=== PATIENT | female | born 1965 | race Caucasian/White ===

== ENCOUNTER 2017-03-04 08:55 | Emergency (ER) | payer BC ==
[2017-03-04 09:02] VITALS: BP 132/117; PULSE 86; TEMP 98.5; BMI 30.2
[2017-03-04] MEDS ORDERED: ALBUTEROL SO4 2.5/IPRATROPIUM 0.5 INH SOL 3 ML VIAL.NEB. NEB ONE (09:49)
[2017-03-04] MEDS ORDERED: predniSONE 20 MG TABLET (UD) PO ONE (09:49)
--- NOTE | 2017-03-04 09:49 | PDOC ---
History of Present Illness - General Chief Complaint: Eye Problem Stated Complaint: PINK EYE Time Seen by Provider: 03/04/17 09:20 History Source: Patient Exam Limitations: No Limitations - History of Present Illness Initial Comments: 03/04/17 09:50 Patient came for evaluation of redness and draining from left eye. was treated for bilateral conjunctivitis last week. States had some yellow crusting this morning Timing/Duration: 24 hours Severity: mild, moderate Associated Symptoms: reports: denies symptoms. denies: cough, fever/chills, headaches Past History - Travel Traveled outside of the country in the last 30 days: No Close contact w/someone who was outside of country & ill: No - Past Medical History Allergies/Adverse Reactions: Allergies Allergy/AdvReac Type Severity Reaction Status Date / Time No Known Allergies Allergy Verified 03/04/17 09:02 Home Medications: Ambulatory Orders NK [No Known Home Medication] 03/04/17 Asthma: Yes HTN: Yes - Surgical History Abdominal Surgery: Yes (HERNIA) - Psycho/Social/Smoking Cessation Hx Anxiety: No Suicidal Ideation: No Smoking History: Never smoked Hx Alcohol Use: No Drug/Substance Use Hx: No Substance Use Type: None Review of Systems - Review of Systems Able to Perform ROS?: Yes Is the patient limited Danish proficient: Yes Constitutional: Yes: Symptoms Reported, See HPI, Malaise. No: Fever HEENTM: Yes: Symptoms Reported, See HPI, Tearing. No: Nose Pain, Nose Congestion Respiratory: No: Symptoms reported Integumentary: Yes: See HPI. No: Symptoms Reported All Other Systems: Reviewed and Negative *Physical Exam - Vital Signs Last Vital Signs Temp Pulse Resp BP Pulse Ox 98.5 F 86 20 132/117 98 03/04/17 09:00 03/04/17 09:00 03/04/17 09:00 03/04/17 09:00 03/04/17 09:00 - Physical Exam General Appearance: Yes: Nourished, Appropriately Dressed, Apparent Distress, Mild Distress HEENT: positive: EOMI, SONIA, TMs Normal, Pharynx Normal, Other (erythema / with tearing and yellowish drainage, to left eye. Visual acuity intact) Neck: positive: Supple. negative: Lymphadenopathy (R), Lymphadenopathy (L) Respiratory/Chest: positive: Lungs Clear, Normal Breath Sounds Extremity: positive: Normal Capillary Refill, Normal Inspection, Normal Range of Motion Integumentary: positive: Normal Color, Dry, Warm Neurologic: positive: tool technician II-XII NML intact, Fully Oriented, Alert, Normal Mood/ Affect, Normal Response, Motor Strength 10/28 ED Treatment Course - LABORATORY CBC & Chemistry Diagram: 03/04/17 10:00 Medical Decision Making - Medical Decision Making 03/04/17 09:54 Conjunctivitis, will treat with tobramycin 03/04/17 18:04 *DC/Admit/Observation/Transfer Diagnosis at time of Disposition: Conjunctivitis Qualifiers: Conjunctivitis type: acute Acute conjunctivitis type: unspecified Laterality: left Qualified Code(s): H10.32 - Unspecified acute conjunctivitis, left eye - Discharge Dispostion Disposition: HOME Condition at time of disposition: Stable Admit: No - Referrals Referrals: Km Simmons [Primary Care Provider] - - Patient Instructions Printed Discharge Instructions: DI for Conjunctivitis Additional Instructions: Rest, avoid rubbing eyes Wash hands frequently as this is very contagious Wash hands, use eye drops as directed, wash hands after use Do not share eyedrops with other person to may become infected as this will infect them Avoid contact with others until redness and discharge is gone from eyes. Followup with ophthalmology or private physician as needed Tobramycin drops 2 drops left eye 4 times a day for the next 5 days, do not share eyedrops with other person's may become infected - Post Discharge Activity Work/School Note: Back to Work
[2017-03-04] MEDS ORDERED: TOBRAMYCIN 0.3% OPHTH SOLN 5 ML BOTTLE ONE (09:55)
[2017-03-04] MEDS ORDERED: TOBRAMYCIN 0.3% OPHTH SOLN 5 ML BOTTLE OD ONE (10:18)
== END 2017-03-04 10:23 | disposition home or self-care (01) ==
LOC: JERFT 08:55
PROC: 3E0F7GC Introduction of Other Therapeutic Substance into Respiratory Tract, Via Natural or Artificial Opening (ICD-10-PCS; principal; 2017-03-04)
DX: H10.32 Unspecified acute conjunctivitis, left eye (principal); J45.909 Unspecified asthma, uncomplicated; I10 Essential (primary) hypertension
CPT/HCPCS: 36415; 99281-25

== ENCOUNTER 2019-01-25 21:27 | Emergency (ER) | payer BC ==
--- NOTE | 2019-01-25 21:56 | PDOC ---
Rapid Medical Evaluation Medical Evaluation: Allergies Allergy/AdvReac Type Severity Reaction Status Date / Time No Known Allergies Allergy Verified 03/04/17 09:02 I have performed a brief in-person evaluation of this patient. The patient presents with a chief complaint of: s/p trip and fall today, falling on back; denies head trauma, LOC; denies back pain; having pain with inspiration; hx of HTN; took 3 Advil prior to coming Pertinent physical exam findings: +small area of redness along L lower posterior ribs, no TTP along ribs, no spinal tenderness I have ordered the following: CXR, rib series The patient will proceed to the ED for further evaluation. 01/25/19 21:53
[2019-01-25 21:57] VITALS: PULSE 83; BMI 29.2
[2019-01-25] MEDS ORDERED: LIDOCAINE PATCH REMOVAL MC SCH (22:00)
[2019-01-25] MEDS ORDERED: LIDOCAINE 5% TOPICAL PATCH TP ONE (23:23)
[2019-01-25] MEDS ORDERED: ACETAMINOPHEN 325 MG TABLET (FP) PO ONE (23:23)
--- NOTE | 2019-01-25 23:23 | PDOC ---
History of Present Illness - General Chief Complaint: Shortness of Breath Stated Complaint: FALL/BREATHING PROBLEM Time Seen by Provider: 01/25/19 21:52 History Source: Patient Exam Limitations: No Limitations - History of Present Illness Initial Comments: 53 yo F with a hx of HTN presents to the emergency department s/p fall 1 hour prior to presentation. Per the patient, she was washing her feet in the sink when she slipped on the floor and landed with her back on the left side against the cat litter box described as hard plastic. Denies antecedent symptoms prior to the fall. Denies the following: fever, chills, SOB, chest pain, abdominal pain, dysuria, hematuria, diarrhea, dizziness, lightheadedness, headaches, hematochezia. ENdorses posterior lateral left rib pain around the 9th-10th rib. Allergies: NKDA Shx: None Social: Denies tobacco, alcohol, and drug use. Past History - Past Medical History Allergies/Adverse Reactions: Allergies Allergy/AdvReac Type Severity Reaction Status Date / Time No Known Allergies Allergy Verified 03/04/17 09:02 Home Medications: Ambulatory Orders NK [No Known Home Medication] 03/04/17 Asthma: Yes HTN: Yes - Surgical History Abdominal Surgery: Yes (HERNIA) - Suicide/Smoking/Psychosocial Hx Smoking History: Former smoker Have you smoked in the past 12 months: No If you are a former smoker, when did you quit?: 20 Information on smoking cessation initiated: No Hx Alcohol Use: No Drug/Substance Use Hx: No Substance Use Type: None Review of Systems - Review of Systems Able to Perform ROS?: Yes Is the patient limited Slovak proficient: No Constitutional: No: Chills, Diaphoresis, Fever, Weakness HEENTM: No: Eye Pain, Ear Pain, Nose Pain, Throat Pain, Mouth Pain Respiratory: No: Cough, Shortness of Breath, Hemoptysis Cardiac (ROS): No: Chest Pain, Lightheadedness, Syncope ABD/GI: No: Constipated, Diarrhea, Nausea, Rectal Bleeding, Vomiting, Tarry Stools : No: Burning, Dysuria, Hematuria, Incontinence Musculoskeletal: Yes: Back Pain. No: Joint Pain, Neck Pain Integumentary: No: Bruising, Erythema, Rash Neurological: No: Headache, Numbness, Tingling, Tremors Psychiatric: No: Change in Appetite Endocrine: No: Unexplained Weight Gain Hematologic/Lymphatic: No: Anemia *Physical Exam - Vital Signs Last Vital Signs Temp Pulse Resp BP Pulse Ox 83 19 166/103 H 97 01/25/19 21:53 01/25/19 21:53 01/25/19 21:53 01/25/19 21:53 - Physical Exam General Appearance: Yes: Nourished, Appropriately Dressed. No: Apparent Distress, Intoxicated HEENT: positive: EOMI, SONIA, Normal ENT Inspection, Normal Voice, Symmetrical, TMs Normal, Pharynx Normal, Hearing Grossly Normal. negative: Pale Conjunctivae , Scleral Icterus (R), Scleral Icterus (L), Muffled/Hoarse voice, Pharyngeal Erythema, Tonsillar Exudate, Tonsillar Erythema, Nasal Congestion, Rhinorrhea, Sinus Tenderness, Excessive drooling Neck: positive: Trachea midline, Supple. negative: Tender, Lymphadenopathy (R) , Lymphadenopathy (L), Tender lateral, Tender midline Respiratory/Chest: positive: Lungs Clear, Normal Breath Sounds. negative: Chest Tender, Respiratory Distress, Accessory Muscle Use Cardiovascular: positive: Regular Rhythm, Regular Rate, S1, S2. negative: Systolic Murmur Gastrointestinal/Abdominal: positive: Normal Bowel Sounds, Flat, Soft. negative : Tender Lymphatic: negative: Adenopathy Musculoskeletal: positive: Normal Inspection, Other (paraspinal tenderness in lumbar region left side. 2x3cm bruise located on the posterior mid scapular line. 9-10th rib pain. ). negative: CVA Tenderness, Vertebral Tenderness Medical Decision Making - Medical Decision Making vitals signs: Initial Vital Signs Pulse Resp BP Pulse Ox 83 19 166/103 H 97 01/25/19 21:53 01/25/19 21:53 01/25/19 21:53 01/25/19 21:53 work upo: chest xray and rib series. will give ibuprofen, tylenol, and lidoderm patch. xray negative for fractures. given IS for home use. follow up given for PMD. Dispo: Discharge *DC/Admit/Observation/Transfer Diagnosis at time of Disposition: Rib pain on left side, Injury - Discharge Dispostion Disposition: HOME Condition at time of disposition: Stable Decision to Admit order: No - Referrals Referrals: [facility] [place] [Provider Group] - Patient Instructions Printed Discharge Instructions: DI for Rib Fracture Additional Instructions: you were seen for your rib pain. xrays were negative. please return to the emergency department if you have worsening shortness of breath or new concerning symptoms such as abdominal pain. please take 975 mg of tylenol every 8 hours for pain. please take 600 mg of ibuprofen every 6 hours for pain. thank you. - Post Discharge Activity Forms/Work/School Notes: Back to Work
[2019-01-25] MEDS ORDERED: ACETAMINOPHEN 325 MG TABLET (FP) ONE (23:33)
[2019-01-25] MEDS ORDERED: LIDOCAINE 5% TOPICAL PATCH ONE (23:33)
[2019-01-25 23:58] VITALS: BP 164/96
--- NOTE | 2019-01-27 15:53 | EKG ---
Test Reason : Blood Pressure : / mmHG Vent. Rate : 083 BPM Atrial Rate : 083 BPM P-R Int : 146 ms QRS Dur : 086 ms QT Int : 392 ms P-R-T Axes : 054 004 054 degrees QTc Int : 460 ms NORMAL SINUS RHYTHM POSSIBLE LEFT ATRIAL ENLARGEMENT NONSPECIFIC ST ABNORMALITY ABNORMAL ECG NO PREVIOUS ECGS AVAILABLE Confirmed by Isa Day ([id number]) on 01/27/2019 3:53:34 PM Referred By: Confirmed By:Isa Day
== END 2019-01-26 00:01 | disposition home or self-care (01) ==
LOC: JER 21:27
DX: S20.222A Contusion of left back wall of thorax, initial encounter (principal); W01.198A Fall on same level from slipping, tripping and stumbling with subsequent striking against other object, initial encounter; Y93.E8 Activity, other personal hygiene; Y92.030 Kitchen in apartment as the place of occurrence of the external cause; Y99.8 Other external cause status
CPT/HCPCS: 71046-TC-FY; 71101-TC-LT-FY; 93005; 93010; 99281-25